=== PATIENT | female | born 1990 | race African-American/Black ===

== ENCOUNTER 2024-03-10 15:20 | Emergency (ER) | payer BC ==
[~2024-03-10] VITALS: Ht 175.3 cm; Wt 124.0 kg
[2024-03-10 15:41] VITALS: TEMP 98.3; O2SAT 100
[2024-03-10 18:00] LABS: BASOPHILS % 0.8 % (0.0-2.0); DIFFERENTIAL COMMENT 0; EOSINOPHILS % 0.8 % (0.0-5.0); HEMATOCRIT. 31.9 % (36.0-48.0); HEMOGLOBIN. 9.9 g/dL (12.0-16.0); LYMPHOCYTES % 22.3 % (20.0-50.0); MEAN CORPUSCULAR HEMOGLOBIN 24.2 pg (28.0-32.0); MEAN CORPUSCULAR VOLUME 77.9 fL (81.0-99.0); MEAN PLATELET VOLUME 8.6 fl (7.4-10.4); MONOCYTES % 5.2 % (2.0-8.0); NEUTROPHILS % 70.9 % (40.0-76.0); PLATELET 477 x1000/uL (130-400); RED CELL DISTRIBUTION WIDTH 18.9 % (11.6-14.6); WHITE BLOOD COUNT 11.2 x1000/uL (4.5-11.0)
[2024-03-10 18:12] LABS: HCG SCREEN NEGATIVE
[2024-03-10] MEDS ORDERED: HYDR-4001 MT (19:28)
[2024-03-10] MEDS: HYDROCODONE/ACETAMINOPHEN 5/325MG TABLET PO ONE (20:03)
[2024-03-10 20:37] VITALS: BP 138/76; PULSE 80; RESP 18
== END 2024-03-10 20:38 | disposition home or self-care (01) ==
LOC: ER 15:20
DX: N93.8 Other specified abnormal uterine and vaginal bleeding (principal)
CPT/HCPCS: 36415; 76830; 76856; 81025; 83880; 84703; 85025; 86850; 86900; 99284